=== PATIENT | female | born 1960 | race Caucasian/White ===

== ENCOUNTER 2018-03-12 15:37 | Emergency (ER) | payer SELFPAY ==
[~2018-03-12 15:37] MED LIST: IBU200 PO; IBU800 PO; LOR05 PO; PER PO
[2018-03-12] MEDS ORDERED: NS(*) 0.9% 1000 ML BAG 1,000 ML IV ONE (15:52)
--- NOTE | 2018-03-12 15:55 | ER Report ---
History and Physical Time Seen By MD: 15:54 Hx. of Stated Complaint: DIZZY HPI/ROS CHIEF COMPLAINT: Dizzy, sinus congestion, cough, headache HISTORY OF PRESENT ILLNESS: 57-year-old female patient presents to emergency [facility] with complaint of dizziness, sinus congestion, cough, headache. Patient states she's not felt well since Wednesday. She states that she was seen at the [facility] on . She is started on antibiotics that time. She states that she has been taking those did seem to feel a little bit better yesterday. She states that today she felt worse. She states that she has not had much of an appetite. She states that today when she got up she struggled to get out of bed and move the 15 feet to the bathroom. She denies any vomiting or diarrhea. She has not taken any other medication aside from antibiotics. She states that she laid down and was reading a book about 9:30 this morning and extension It was 2:30. She states she has a hard time focusing and difficult time functioning. REVIEW OF SYSTEMS: Respiratory: As noted above Cardiovascular: No chest pain, no palpitations. Gastrointestinal: No vomiting, no abdominal pain. Musculoskeletal: No back pain. Allergies: Coded Allergies: No Known Drug Allergies (Verified , 03/12/18) Home Meds Reported Medications Ibuprofen (Motrin) 200 Mg Tab, 200 MG PO PRN, #20 0 Refills 12/05/10 Discontinued Reported Medications Lorazepam (Ativan) 0.5 Mg Tab, 0.5 MG PO Q6H PRN, #20 0 Refills For anxiety. 12/05/10 Past Medical/Surgical History Patient has a past medical history of migraines, angina, hypertension, shortness of breath, pneumonia, right wrist fracture, right hip fracture, rib fracture, left shoulder fracture, back pain, alcohol use, depression. Patient is a surgical history of hysterectomy, tonsillectomy. Patient has a family medical history of cancer, diabetes. Reviewed Nurses Notes: Yes Hx Smoking: Yes Hx Substance Use Disorder: No Hx Alcohol Use: Yes Constitutional Vital Sign - Last 24 Hours 03/12/18 03/12/18 03/12/18 03/12/18 15:37 15:45 15:49 15:52 Temp 97.4 Pulse 88 80 79 Resp 12 15 B/P (MAP) 143/111 (122) 143/111 Pulse Ox 93 94 O2 Delivery Room Air Room Air 03/12/18 03/12/18 03/12/18 03/12/18 16:00 16:07 16:12 16:25 Pulse 85 75 Resp 17 10 B/P (MAP) 144/79 (100) 148/94 (112) Pulse Ox 90 91 O2 Delivery Room Air Room Air 03/12/18 03/12/18 03/12/18 03/12/18 16:30 17:00 17:07 17:20 Pulse 69 65 Resp 13 7 B/P (MAP) 139/85 (103) 148/93 (111) Pulse Ox 91 89 O2 Delivery Room Air Room Air Physical Exam General Appearance: The patient is alert, has no immediate need for airway protection and no current signs of toxicity. Respiratory: Chest is non tender, lungs are clear to auscultation. Cardiac: regular rate and rhythm Gastrointestinal: Abdomen is soft and non tender, no masses, bowel sounds normal. Musculoskeletal: Neck: Neck is supple and non tender. Extremities have full range of motion and are non tender. Skin: No rashes or lesions. DIFFERENTIAL DIAGNOSIS: After history and physical exam differential diagnosis was considered for sinusitis, upper respiratory infection, hypertension, intracranial hemorrhage, GA. Medical Decision Making Data Points Result Diagram: 03/12/18 1611 03/12/18 1611 Laboratory Hematology Test 03/12/18 16:11 Red Blood Count 4.81 M/uL (4.17-5.56) Mean Corpuscular Volume 90.3 fL (80.0-96.0) Mean Corpuscular Hemoglobin 31.1 pg (26.0-33.0) Mean Corpuscular Hemoglobin Concent 34.4 g/dL (32.0-36.0) Red Cell Distribution Width 13.2 % (11.5-14.5) Mean Platelet Volume 6.8 fL (7.2-11.1) Neutrophils (%) (Auto) 59.8 % (39.4-72.5) Lymphocytes (%) (Auto) 26.7 % (17.6-49.6) Monocytes (%) (Auto) 9.6 % (4.1-12.4) Eosinophils (%) (Auto) 3.4 % (0.4-6.7) Basophils (%) (Auto) 0.5 % (0.3-1.4) Nucleated RBC Relative Count (auto) 0.0 /100WBC Neutrophils # (Auto) 4.4 K/uL (2.0-7.4) Lymphocytes # (Auto) 1.9 K/uL (1.3-3.6) Monocytes # (Auto) 0.7 K/uL (0.3-1.0) Eosinophils # (Auto) 0.2 K/uL (0.0-0.5) Basophils # (Auto) 0.0 K/uL (0.0-0.1) Nucleated RBC Absolute Count (auto) 0.00 K/uL Sodium Level 141 mmol/L (137-145) Potassium Level 3.3 mmol/L (3.5-5.0) Chloride Level 100 mmol/L (98-107) Carbon Dioxide Level 31 mmol/L (22-31) Blood Urea Nitrogen 21 mg/dl (7-18) Creatinine 0.80 mg/dl (0.52-1.04) Glomerular Filtration Rate Calc > 60.0 Random Glucose 113 mg/dl (75-110) Calcium Level 9.4 mg/dl (8.4-10.2) Total Bilirubin 0.4 mg/dl (0.2-1.3) Aspartate Amino Transf (AST/SGOT) 22 U/L (0-35) Alanine Aminotransferase (ALT/SGPT) 38 U/L (0-56) Alkaline Phosphatase 102 U/L (0-126) Troponin I < 0.012 ng/ml Total Protein 7.5 g/dl (6.3-8.2) Albumin 3.8 g/dl (3.5-5.0) Chemistry Test 03/12/18 16:11 White Blood Count 7.3 k/uL (4.5-11.0) Red Blood Count 4.81 M/uL (4.17-5.56) Hemoglobin 15.0 g/dL (12.0-16.0) Hematocrit 43.5 % (34.0-47.0) Mean Corpuscular Volume 90.3 fL (80.0-96.0) Mean Corpuscular Hemoglobin 31.1 pg (26.0-33.0) Mean Corpuscular Hemoglobin Concent 34.4 g/dL (32.0-36.0) Red Cell Distribution Width 13.2 % (11.5-14.5) Platelet Count 323 K/uL (150-450) Mean Platelet Volume 6.8 fL (7.2-11.1) Neutrophils (%) (Auto) 59.8 % (39.4-72.5) Lymphocytes (%) (Auto) 26.7 % (17.6-49.6) Monocytes (%) (Auto) 9.6 % (4.1-12.4) Eosinophils (%) (Auto) 3.4 % (0.4-6.7) Basophils (%) (Auto) 0.5 % (0.3-1.4) Nucleated RBC Relative Count (auto) 0.0 /100WBC Neutrophils # (Auto) 4.4 K/uL (2.0-7.4) Lymphocytes # (Auto) 1.9 K/uL (1.3-3.6) Monocytes # (Auto) 0.7 K/uL (0.3-1.0) Eosinophils # (Auto) 0.2 K/uL (0.0-0.5) Basophils # (Auto) 0.0 K/uL (0.0-0.1) Nucleated RBC Absolute Count (auto) 0.00 K/uL Glomerular Filtration Rate Calc > 60.0 Calcium Level 9.4 mg/dl (8.4-10.2) Total Bilirubin 0.4 mg/dl (0.2-1.3) Aspartate Amino Transf (AST/SGOT) 22 U/L (0-35) Alanine Aminotransferase (ALT/SGPT) 38 U/L (0-56) Alkaline Phosphatase 102 U/L (0-126) Troponin I < 0.012 ng/ml Total Protein 7.5 g/dl (6.3-8.2) Albumin 3.8 g/dl (3.5-5.0) EKG/Imaging Imaging CHEST PA AND LAT INDICATION: Dizziness COMPARISON: None available FINDINGS: Frontal and lateral views obtained. The cardiac silhouette is normal in size. No pneumothorax. The lungs are clear. No acute osseous abnormality. No pleural fluid. IMPRESSION: No acute finding. Report Dictated By: Juan Camacho MD at 03/12/2018 5:05 PM Report E-Signed By: Juan Camacho MD at 03/12/2018 5:[address] scan without contrast HISTORY: Headaches, dizziness COMPARISONS: December 03, 2010 TECHNIQUE: Non-contrast head CT was performed with sagittal and coronal reform ations. One of the following dose optimization techniques was utilized in the performance of this exam: automated exposure control; adjustment of the mA and/or kV according to patient size; or use of iterative reconstruction technique. Specific details can be referenced in the facility's radiology CT exam operational policy. FINDINGS: There is no intracranial hemorrhage, hydrocephalus or midline shift. The basal cisterns, michele-white differentiation, and convexity sulci are maintained. Normal orbital soft tissues. Trace right mastoid fluid. Minimal ethmoid sinus mucosal thickening. Small left maxillary sinus mucous retention cysts. No acute osseous abnormality. IMPRESSION: No acute intracranial abnormality. Report Dictated By: Juan Camacho MD at 03/12/2018 5:06 PM Report E-Signed By: Juan Camacho MD at 03/12/2018 5:12 PM ED Course/Re-evaluation ED Course Patient was admitted to exam room, history and physical were obtained. The frontal diagnoses were considered. On examination lungs are clear, heart is regular, abdomen soft nontender. Patient was alert and oriented area a CBC, CMP, chest x-ray, CT scan of the head were done. Lab results were completely unremarkable. Chest x-ray showed no acute cardiopulmonary processes, CT scan of the head was negative. Patient states that she has also started taking a vitamin supplement to help with weight loss. Patient states that that has seemed to help her sleep. She denies having any fevers or chills. During the time she is in the emergency room she began feeling better, less dizzy and "out of it". I believe it patient has an upper respiratory infection. Seizures are currently taking antibiotics we'll have her go ahead and continue with his antibiotics. She is to increase her fluid intake. Plenty of rest. With patient feeling better yesterday and worse today I anticipate that she will start improving within the next 24 hours. I discussed this with patient who verbalized understanding and agreement with plan. Decision to Disposition Date: Mar 12, 2018 Decision to Disposition Time: 17:26 Depart Departure Latest Vital Signs Vital Signs Date Time Temp Pulse Resp B/P (MAP) Pulse Ox O2 Delivery O2 Flow Rate FiO2 03/12/18 17:20 148/93 (111) 03/12/18 17:00 65 7 89 Room Air 03/12/18 15:49 97.4 Impression: Primary Impression: Upper respiratory infection Additional Impression: Hypertension Condition: Improved Disposition: HOME OR SELF-CARE Patient Instructions: Hypertension (ED) Additional Instructions: Follow up with the [facility] to discuss your blood pressure. Continue to monitor your blood pressure. Continue with your current antibiotics. Return to the ER if condition worsens. Problem Qualifiers Primary Impression: Upper respiratory infection URI type: unspecified URI Qualified Codes: J06.9 - Acute upper respiratory infection, unspecified Additional Impression: Hypertension Hypertension type: unspecified Qualified Codes: I10 - Essential (primary) hypertension SHERRI MOREJONP Mar 12, 2018 15:55
--- NOTE | 2018-03-12 16:01 | EKG ---
FACILITY: [facility] PATIENT NAME: LOWELL FITZGERALD : [id number] MR: [id number] V: [id number] EXAM DATE: ORDERING PHYSICIAN: SHERRI MOREJON TECHNOLOGIST: Test Reason : Dizziness Blood Pressure : / mmHG Vent. Rate : 077 BPM Atrial Rate : 077 BPM P-R Int : 164 ms QRS Dur : 080 ms QT Int : 426 ms P-R-T Axes : 044 -24 075 degrees QTc Int : 482 ms Normal sinus rhythm Minimal voltage criteria for LVH, may be normal variant Prolonged QT Abnormal ECG No previous ECGs available Confirmed by UMA ELIAS ([id number]) on 03/13/2018 4:29:27 AM Referred By: Confirmed By:UMA ELISA
[2018-03-12 16:17] LABS: PLATELET COUNT, AUTOMATED 323 K/uL (150-450)
--- NOTE | 2018-03-12 17:10 | RADIOLOGY IMAGING REPORT ---
FACILITY: [facility] [place] PATIENT NAME: Nancy Guillermo : 1960 MR: [id number] V: [id number] EXAM DATE: ORDERING PHYSICIAN: SHERRI MOREJON TECHNOLOGIST: Location: [facility] Patient: Nancy Guillermo : 1960 Visit/Account:[id number] Date of Sevice: 03/12/2018 CHEST PA AND LAT INDICATION: Dizziness COMPARISON: None available FINDINGS: Frontal and lateral views obtained. The cardiac silhouette is normal in size. No pneumoth orax. The lungs are clear. No acute osseous abnormality. No pleural fluid. IMPRESSION: No acute finding. Report Dictated By: Juan Camacho MD at 03/12/2018 5:05 PM Report E-Signed By: Juan Camacho MD at 03/12/2018 5:06 PM WSN:[id number]
--- NOTE | 2018-03-12 17:15 | RADIOLOGY IMAGING REPORT ---
FACILITY: [facility] PATIENT NAME: Nancy Guillermo : 1960 MR: [id number] V: [id number] EXAM DATE: ORDERING PHYSICIAN: SHERRI MOREJON TECHNOLOGIST: [place] [facility] [place] Patient: Nancy Guillermo : 1960 Visit/Account:[id number] Date of Sevice: 03/12/[address] scan without contrast HISTORY: Headaches, dizziness COMPARISONS: December 03, 2010 TECHNIQUE: Non-contrast head CT was performed with sagittal and coronal reformations. One of the following dose optimization techniques was utilized in the performance of this exam: autom ated exposure control; adjustment of the mA and/or kV according to patient size; or use of iterative reconstruction technique. Specific details can be referenced in the facility's radiology CT exam ope rational policy. FINDINGS: There is no intracranial hemorrhage, hydrocephalus or midline shift. The basal cisterns, michele-white differentiation, and convexity sulci are maintained. Normal orbital soft tissues. Trace right mastoid fluid. Minimal ethmoid sinus mucosal thickening. Small left maxillary sinus mucou s retention cysts. No acute osseous abnormality. IMPRESSION: No acute intracranial abnormality. Report Dictated By: Juan Camacho MD at 03/12/2018 5:06 PM Report E-Signed By: Juan Camacho MD at 03/12/2018 5:12 PM WSN:[id number]
[2018-03-12 17:20] VITALS: BP 148/93
== END 2018-03-12 17:44 | disposition home or self-care (01) ==
LOC: ER 15:47
DX: J06.9 Acute upper respiratory infection, unspecified (principal); I10 Essential (primary) hypertension
CPT/HCPCS: 36415; 70450; 71046; 84484; 85025; 93005; 99284; J7030; 82040; 82247; 82310; 82374; 82435; 82565; 82947; 84075; 84132; 84155; 84295; 84450; 84460; 84520